=== PATIENT | female | born 2005 | race Caucasian/White ===

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

== ENCOUNTER 2025-03-14 21:46 | Emergency (ER) | payer OTHER ==
[~2025-03-14] VITALS: Ht 152.4 cm; Wt 68.2 kg
[~2025-03-14 21:46] MED LIST changes: -LORY1TAB2; -ROSU20TA86; -SUMA20SP4
[2025-03-14] MEDS ORDERED: ROSU20TA86 (21:52)
[2025-03-14] MEDS ORDERED: LORY1TAB2 (21:52)
[2025-03-14] MEDS ORDERED: SUMA20SP4 (21:52)
[2025-03-14 23:13] VITALS: BP 122/71; TEMP 97; O2SAT 97
== END 2025-03-14 23:17 | disposition home or self-care (01) ==
LOC: M ED 21:46
DX: S93.401A Sprain of unspecified ligament of right ankle, initial encounter (principal); Y92.9 Unspecified place or not applicable; Y93.9 Activity, unspecified; Y99.9 Unspecified external cause status; W01.0XXA Fall on same level from slipping, tripping and stumbling without subsequent striking against object, initial encounter; Z79.899 Other long term (current) drug therapy

== ENCOUNTER → 2025-03-14 | Outpatient (REF) | payer OTHER ==
[~2025-03-14] MED LIST changes: +LORY1TAB2; +ROSU20TA86; +SUMA20SP4
== END ==
LOC: M SFHCLERA 11:20
PROVIDERS: ATTEND Student in an Organized Health Care Education/Training Program
DX: E78.5 Hyperlipidemia, unspecified (principal)